=== PATIENT | male | born 1955 | race Caucasian/White ===

== ENCOUNTER 2018-11-26 12:21 | Outpatient (CLI) | payer OTHER, BC ==
[2018-11-26 14:18] LABS: #Basophils 0.1 thou/uL (0.0-0.2); #Eosinphils 0.7 thou/uL (0.0-0.7); #Lymphocytes 3.1 thou/uL (1.20-3.40); #Neutrophils 4.8 thou/uL (1.40-6.50); %Basophils 0.7 % (0.0-1.0); %Eosinophils 7.7 % (0.0-10.0); %Neutrophils 49.6 % (42.0-75.0); Mean Corpuscular HGB CONC 32.9 g/dL (32.0-36.0); Mean Corpuscular Hemoglobin 31.6 pg (27.0-31.0); Mean Corpuscular Volume 96.1 fL (78.0-98.0); Mean Platelet Volume 7.9 fL (7.4-10.4); Platelet Count 206 thou/uL (130-400); RBC Distribution Width 12.2 % (11.5-14.5); Red Blood Cell (RBC) Count 4.74 mill/uL (4.70-6.10); White Blood Cell (WBC) Count 9.6 thou/uL (4.8-10.8)
[2018-11-26 14:38] LABS: Prothrombin Time 12.8 SEC (12.0-14.7)
[2018-11-26 14:39] LABS: Anion Gap 13 mmol/L (10-20); BUN (Urea Nitrogen) 18 mg/dL (8.4-25.7); Calc. Creatinine Clearance 0 mL/min (70-130); Calcium 9.5 mg/dL (7.8-10.44); Carbon Dioxide 25 mmol/L (23-31); Chloride 103 mmol/L (98-107); Estimated GFR-MDRD 70; Glucose 72 mg/dL (80-115); Potassium 4.5 mmol/L (3.5-5.1); Sodium 136 mmol/L (136-145)
--- NOTE | 2018-11-26 17:01 | EKG ---
Test Reason : Blood Pressure : / mmHG Vent. Rate : 051 BPM Atrial Rate : 051 BPM P-R Int : 186 ms QRS Dur : 092 ms QT Int : 446 ms P-R-T Axes : 048 037 021 degrees QTc Int : 411 ms Sinus bradycardia Otherwise normal ECG No previous ECGs available Confirmed by DR. João AARON ([id number]) on 11/26/2018 5:01:10 PM Referred By: ISATU Confirmed By:DR. João AARON
== END 2018-11-26 12:22 | disposition home or self-care (01) ==
LOC: LABBT 12:21
PROVIDERS: ATTEND Orthopaedic Surgery
DX: Z01.818 Encounter for other preprocedural examination (principal); M16.12 Unilateral primary osteoarthritis, left hip
CPT/HCPCS: 80048; 85025; 85610; 87081; 93005; 93010

== ENCOUNTER 2018-11-26 12:30 | Inpatient (IN) | payer OTHER, BC ==
[2018-11-26 12:43] VITALS: BMI 26.4
[2018-12-01] MEDS ORDERED: ceFAZolin Sodium (SDC) 2 GM/100 ML BAG ONE (08:21)
[2018-12-01] MEDS ORDERED: Sodium Chloride 0.9% 100 ML ONE (08:21)
[2018-12-01] MEDS ORDERED: Tranexamic Acid 1,000 MG/10 ML VIAL ONE (08:21)
[2018-12-01] MEDS ORDERED: Vancomycin HCl 1.5 GM in Sodium Chloride 0.9% 250 ML 300 ML IVPB SCH (08:30)
[2018-12-01] MEDS ORDERED: Midazolam HCl 2 mg/2 ml Vial ONE (10:13)
[2018-12-01] MEDS ORDERED: Fentanyl 100 MCG/2 ML VIAL ONE (10:13)
[2018-12-01] MEDS ORDERED: Acetaminophen 500 MG TAB PO PRN (10:41)
[2018-12-01] MEDS ORDERED: HYDROcodone/Acetaminophen 5/325 mg Tablet PO PRN (10:45)
[2018-12-01] MEDS ORDERED: Zolpidem Tartrate 5 MG TAB PO PRN ×2 (10:45→10:58)
[2018-12-01] MEDS ORDERED: Promethazine HCl 25 MG/ML VIAL IM PRN ×3 (10:45→12:29)
[2018-12-01] MEDS ORDERED: Hydrocerin (Eucerin) Cream 120 gm Jar TOP PRN (10:45)
[2018-12-01] MEDS ORDERED: Naloxone HCl 0.4 mg/ml Vial IV PRN (10:45)
[2018-12-01] MEDS ORDERED: Promethazine HCl 25 MG SUPP PR PRN (10:45)
[2018-12-01] MEDS ORDERED: traMADol HCl 50 MG TAB PO PRN ×2 (10:45)
[2018-12-01] MEDS ORDERED: Ketorolac Tromethamine 30 MG/ML VIAL IVP PRN (10:45)
[2018-12-01] MEDS ORDERED: Ondansetron PF 4 MG/2 ML Vial IVP PRN ×2 (10:45→10:58)
[2018-12-01] MEDS ORDERED: Naloxone HCl 0.4 mg/ml Vial IVP PRN (10:45)
[2018-12-01] MEDS ORDERED: diphenhydrAMINE 50 MG/ML VIAL IVP PRN (10:45)
[2018-12-01] MEDS ORDERED: diphenhydrAMINE 50 MG/ML VIAL IM PRN (10:45)
[2018-12-01] MEDS ORDERED: Bupivacaine 0.25% 10 ML VIAL EPIDURAL PRN (10:45)
[2018-12-01] MEDS ORDERED: HYDROcodone/Acetaminophen 10/325 mg Tablet PO PRN ×2 (10:58)
[2018-12-01] MEDS ORDERED: Acetaminophen 325 MG TAB PO PRN (10:58)
[2018-12-01] MEDS ORDERED: Morphine 4 MG/ML VIAL SLOW IVP PRN (10:58)
[2018-12-01] MEDS ORDERED: Fentanyl 100 MCG/2 ML VIAL SLOW IVP PRN ×2 (10:58)
[2018-12-01] MEDS ORDERED: diphenhydrAMINE 25 MG CAP PO PRN (10:58)
[2018-12-01] MEDS ORDERED: Morphine 2 MG/ML SYRINGE SLOW IVP PRN (10:58)
[2018-12-01] MEDS ORDERED: Bupivacaine HCl 0.5%/Epinephrine 1:200,000/PF 30 ml Vial ONE (11:36)
[2018-12-01] MEDS ORDERED: Promethazine HCl 25 MG/ML VIAL SLOW IVP PRN (12:29)
[2018-12-01] MEDS ORDERED: Ondansetron HCl/PF 4 MG/2 ML Vial IVP PRN (12:29)
[2018-12-01] MEDS ORDERED: Acetaminophen 1,000 MG in Premix Bag 1 BAG IVPB SCH (13:45)
[2018-12-01] MEDS ORDERED: Ketorolac Tromethamine 30 MG/ML VIAL IM SCH (14:00)
--- NOTE | 2018-12-01 14:10 | RAD ---
RADIOGRAPH LEFT HIP 2 VIEWS: 12/01/18 HISTORY: 63-year-old male with chronic left hip pain. FINDINGS: Metallic acetabular cup articulates with metallic femoral head prosthesis with stem that reaches the proximal femoral diaphysis. Subcutaneous emphysema indicates recent postoperative status. IMPRESSION: Recently status post total left hip replacement arthroplasty. POS: CET
--- NOTE | 2018-12-01 15:58 | OP ---
DATE OF PROCEDURE: 12/01/2018 PREOPERATIVE DIAGNOSIS: Degenerative joint disease, left hip. POSTOPERATIVE DIAGNOSIS: Degenerative joint disease, left hip. PROCEDURE PERFORMED: Left total hip arthroplasty using [place] Accolade II, #5 stem with a standard 36 mm ceramic head, 56 mm Tritanium cup with a 36 mm X3 liner. MACHINE TRY OUT SETTER: Oliver Amezcua PA-C ESTIMATED BLOOD LOSS: 300. SPECIMENS: None. DRAINS: None. COMPLICATIONS: None. PROCEDURE IN DETAIL: After informed consent was obtained in the preoperative holding area, the patient was taken to the operative suite where general anesthesia was induced. The patient was then positioned in the lateral decubitus position. The hip was then prepped and draped in usual sterile fashion. The patient received preoperative antibiotics. Prior to incision, time-out was called and all members of the surgical team agreed upon site, surgeon, and patient. After this, a longitudinal incision was made directly over the trochanter, noted by palpation extending 2 fingerbreadths above and below the trochanter. The deeper subcutaneous layer was undermined with Bovie electrocautery. The iliotibial band was encountered and incised sharply and the plane below this was developed bluntly. A Charnley retractor was placed to hold this opened. The lateral aspect of the trochanter and the abductor muscles were encountered and then reflected anteriorly off the trochanter using Bovie electrocautery. Once this was completed, the anterior capsule was then encountered and identified and copious capsulotomy was carried out, exposing the femoral neck and head. Dislocation maneuver was then performed and an in situ provisional neck cut was then made using the oscillating saw. Attention was then turned to acetabular preparation and sequential reaming was carried out up to the appropriate diameter. A trial was then malleted into place with good firm resistance and no pullout. The permanent acetabular shell was then malleted squarely into place, as was the appropriate liner. Once completed, the wound was copiously irrigated and attention was then turned to femoral preparation. Flexion and external rotation were performed of the exposed thigh and femoral elevators were then placed at the proximal aspect of the wound. Canal finder was used to establish the length of the canal and sequential reaming was carried out, followed by broaching. Once the appropriate stability was established with the trial broaches with flexion, extension and rotational stability, we did trial with neutral and 2 mm offset incremental necks. Once the appropriate size was decided upon, with good stability noted with flexion, extension, internal and external rotation and shuck being negative, we removed the femoral trial broach and malletted into place the permanent prosthesis with good firm fit, which was also stable to rotation. Again, the hip felt very stable to flexion, extension, internal and external rotation. Leg lengths appeared near anatomic clinically and we were quite happy with prosthesis placement. Copious irrigation was then carried out through the entirety of the wound. Primary closure of the abductors was accomplished with interrupted #2 Vicryl [id number] stitches and the IT band was then closed with interrupted #2 Vicryl, oversewn with a #2 running barbed Quill stitch. Subcutaneous fascia was closed with running barbed Quill stitch and a subcuticular Monocryl barbed Quill stitch was used for skin closure and augmented with skin cement. A sterile dressing was applied. The procedure was terminated without any complication. All counts were correct. The patient was awakened in the operative suite and taken to the recovery room in stable condition. Job ID: [id number]
[2018-12-01] MEDS ORDERED: CEFAZOLIN 2 GM in Sodium Chloride 0.9% 100 ML IVPB SCH (17:00)
[2018-12-01] MEDS: CEFAZOLIN 2 GM in Sodium Chloride 0.9% 100 ML IVPB SCH (20:24)
[2018-12-01] MEDS: Atorvastatin Calcium 20 MG TAB PO SCH (20:25)
[2018-12-01] MEDS: Aspirin 81 mg Enteric Coated Tablet PO SCH (20:25)
[2018-12-01] MEDS: diphenhydrAMINE 25 MG CAP PO PRN ×2 (20:26→23:49)
--- NOTE | 2018-12-01 23:10 | PDOC.HOSPP ---
- Subjective Subjective: Patient seen and examined for med mngt. No CP/SOB. Pain controlled. No new complaints. No overnight events - Objective Vital Signs & Weight: Vital Signs (12 hours) Temp Pulse Resp BP BP Pulse Ox 12/01/18 20:08 97.8 F 54 L 18 109/67 98 12/01/18 15:33 110/68 12/01/18 15:25 97.6 F 47 L 18 114/67 97 Weight Weight 190 lb I&O: 11/30/18 12/01/18 12/02/18 06:59 06:59 06:59 Intake Total 475 Output Total 150 Balance 325 Additional Labs: Laboratory Tests 11/26/18 11/26/18 13:10 13:10 Hgb 15.0 Potassium 4.5 BUN 18 Creatinine 1.06 EKG Reviewed by me: Yes (Sinus bradycardia) ROS - Review of Systems All systems: All other ROS were reviewed and found negative. - Medication Medications: Active Medications Generic Name Dose Route Start Last Admin Trade Name Freq PRN Reason Stop Dose Admin Aspirin 81 mg 12/01/18 21:00 12/01/18 20:25 Ecotrin PO 81 mg BID GUILLERMINA Administration Atorvastatin Calcium 20 mg 12/01/18 21:00 12/01/18 20:25 Lipitor PO 20 mg HS GUILLERMINA Administration Diphenhydramine HCl 25 mg 12/01/18 10:45 12/01/18 20:26 Benadryl PO 25 mg Q3H PRN Administration Itching Diphenhydramine HCl 25 mg 12/01/18 10:45 12/01/18 16:27 Benadryl IVP 25 mg Q3H PRN Administration Itching Cefazolin Sodium 2 gm/ Sodium 100 mls @ 200 mls/hr 12/01/18 20:00 12/01/18 20 :24 Chloride IVPB 12/02/18 04:29 100 mls 0400,1200,2000 GUILLERMINA Administration - Exam NAD Neck: supple, no JVD Heart: RRR, no rubs Respiratory: CTAB, no rales Gastrointestinal: soft, non-tender, normal bowel sounds Extremities: no edema Neurological: no focal deficits Psychiatric: normal affect, A&O x 3 Hosp A/P (1) HLD (hyperlipidemia) Code(s): E78.5 - HYPERLIPIDEMIA, UNSPECIFIED Status: Acute (2) CKD (chronic kidney disease) stage 2, GFR 60-89 ml/min Code(s): N18.2 - CHRONIC KIDNEY DISEASE, STAGE 2 (MILD) Status: Chronic - Plan PT/OT, incentive spirometry Cont Statin at home dose. No other medical issues. No Cardiac history Will follow PRN Thank you for this consultation.
[2018-12-02] MEDS: diphenhydrAMINE 25 MG CAP PO PRN ×4 (03:10→21:46)
[2018-12-02] MEDS: CEFAZOLIN 2 GM in Sodium Chloride 0.9% 100 ML IVPB SCH (03:11)
[2018-12-02] MEDS: HYDROcodone/Acetaminophen 5/325 mg Tablet PO PRN ×4 (03:12→21:52)
[2018-12-02 05:49] LABS: Mean Corpuscular HGB CONC 32.1 g/dL (32.0-36.0); Mean Corpuscular Hemoglobin 31.2 pg (27.0-31.0); Mean Corpuscular Volume 97.2 fL (78.0-98.0); Mean Platelet Volume 7.4 fL (7.4-10.4); Platelet Count 167 thou/uL (130-400); RBC Distribution Width 12.4 % (11.5-14.5); Red Blood Cell (RBC) Count 3.86 mill/uL (4.70-6.10); White Blood Cell (WBC) Count 11.4 thou/uL (4.8-10.8)
[2018-12-02] MEDS: fentaNYL Citrate/PF 500 MCG, Bupivacaine 10 ML in Sodium Chloride 0.9% 80 ML EPIDURAL SCH ×2 (05:50→21:54)
[2018-12-02] MEDS ORDERED: Ferrous Gluconate 324 MG TAB PO SCH (08:00)
[2018-12-02] MEDS: Multivitamin W/ Minerals 1 TAB PO SCH (08:24)
[2018-12-02] MEDS: Aspirin 81 mg Enteric Coated Tablet PO SCH ×2 (08:24→21:36)
[2018-12-02] MEDS: Senokot S 8.6-50 MG TAB PO SCH ×2 (08:24→21:36)
--- NOTE | 2018-12-02 14:48 | PDOC.HOSPP ---
- Subjective Subjective: Pt seen for followup re: dyslipidemia. Feels well, no complaints. - Objective Vital Signs & Weight: Vital Signs (12 hours) Temp Pulse Resp BP BP Pulse Ox 12/02/18 12:00 98 F 77 18 121/64 98 12/02/18 09:50 105/55 L 12/02/18 08:24 94 L 12/02/18 08:00 97.6 F 76 18 102/56 L 94 L 12/02/18 06:14 97 12/02/18 03:26 98.5 F 61 18 124/70 97 Weight Admit Weight 190 lb Weight 190 lb I&O: 12/01/18 12/02/18 12/03/18 06:59 06:59 06:59 Intake Total 1607 Output Total 850 Balance 757 Result Diagrams: 12/02/18 05:36 Additional Labs: Labs and MARs reviewed by me ROS - Review of Systems All systems: All other ROS were reviewed and found negative. Constitutional: denies: fever, chills, sweats, weakness, malaise Cardiovascular: denies: chest pain, palpitations, orthopnea, paroxysmal noc. dyspnea, edema, light headedness - Medication Medications: Active Medications Generic Name Dose Route Start Last Admin Trade Name Freq PRN Reason Stop Dose Admin Hydrocodone Bitart/Acetaminophen 2 tab 12/01/18 10:45 12/02/18 14:41 Viola 5/325 PO 2 tab Q4H PRN Administration For Moderate Pain 4-6 Aspirin 81 mg 12/01/18 21:00 12/02/18 08:24 Ecotrin PO 81 mg BID GUILLERMINA Administration Atorvastatin Calcium 20 mg 12/01/18 21:00 12/01/18 20:25 Lipitor PO 20 mg HS GUILLERMINA Administration Diphenhydramine HCl 25 mg 12/01/18 10:45 12/02/18 14:41 Benadryl PO 25 mg Q3H PRN Administration Itching Diphenhydramine HCl 25 mg 12/01/18 10:45 12/01/18 16:27 Benadryl IVP 25 mg Q3H PRN Administration Itching Fentanyl Citrate 500 mcg/ 100 mls @ 6 mls/hr 12/01/18 10:45 12/02/18 05:50 Bupivacaine HCl 10 ml/ Sodium EPIDURAL 100 mls Chloride INF GUILLERMINA Administration Iron/Minerals/Multivitamins 1 tab 12/02/18 09:00 12/02/18 08:24 Theragran M PO 1 tab DAILY GUILLERMINA Administration Senna/Docusate Sodium 2 tab 12/02/18 09:00 12/02/18 08:24 Senokot S PO 2 tab BID GUILLERMINA Administration - Exam NAD Neck: supple Heart: RRR Respiratory: CTAB Gastrointestinal: soft Neurological: CN's grossly intact Psychiatric: normal affect Hosp A/P (1) HLD (hyperlipidemia) Code(s): E78.5 - HYPERLIPIDEMIA, UNSPECIFIED Status: Chronic (2) Arthritis Code(s): M19.90 - UNSPECIFIED OSTEOARTHRITIS, UNSPECIFIED SITE Status: Chronic - Plan dyslipidemia stable, continue statin. s/p left hip surgery. DVT prophylaxis and pain management per orthopedic surgery service.
[2018-12-02] MEDS: Atorvastatin Calcium 20 MG TAB PO SCH (21:36)
[2018-12-03 04:28] LABS: Hemoglobin 11.2 g/dL (14.0-18.0); Mean Corpuscular HGB CONC 34.6 g/dL (32.0-36.0); Mean Corpuscular Hemoglobin 33.1 pg (27.0-31.0); Mean Corpuscular Volume 95.7 fL (78.0-98.0); Mean Platelet Volume 7.8 fL (7.4-10.4); Platelet Count 149 thou/uL (130-400); RBC Distribution Width 12.2 % (11.5-14.5); Red Blood Cell (RBC) Count 3.38 mill/uL (4.70-6.10)
[2018-12-03] MEDS: Aspirin 81 mg Enteric Coated Tablet PO SCH ×2 (08:34→20:59)
[2018-12-03] MEDS: Multivitamin W/ Minerals 1 TAB PO SCH (08:34)
[2018-12-03] MEDS: Senokot S 8.6-50 MG TAB PO SCH ×2 (08:34→20:59)
[2018-12-03] MEDS ORDERED: HYDROcodone/Acetaminophen 5/325 mg Tablet PO PRN (10:42)
[2018-12-03] MEDS: HYDROcodone/Acetaminophen 5/325 mg Tablet PO PRN ×2 (10:59→16:14)
[2018-12-03 12:35] LABS: #Eosinphils 0.3 thou/uL (0.0-0.7); #Lymphocytes 2.2 thou/uL (1.20-3.40); #Monocytes 1.7 thou/uL (0.11-0.59); #Neutrophils 12.3 thou/uL (1.40-6.50); %Basophils 0.1 % (0.0-1.0); %Eosinophils 1.8 % (0.0-10.0); %Lymphocytes 13.1 % (21.0-51.0); %Monocytes 10.3 % (0.0-10.0); %Neutrophils 74.6 % (42.0-75.0); Mean Corpuscular HGB CONC 33.3 g/dL (32.0-36.0); Mean Corpuscular Hemoglobin 31.9 pg (27.0-31.0); Mean Corpuscular Volume 95.8 fL (78.0-98.0); Mean Platelet Volume 7.9 fL (7.4-10.4); Platelet Count 153 thou/uL (130-400); RBC Distribution Width 12.3 % (11.5-14.5); Red Blood Cell (RBC) Count 3.75 mill/uL (4.70-6.10); White Blood Cell (WBC) Count 16.5 thou/uL (4.8-10.8)
[2018-12-03 12:50] LABS: Bilirubin Negative (Negative); Blood, Urine 3+ (Negative); Calcium Oxalate Crystals 1+ HPF (None Seen); Clarity Clear (Clear); Glucose, Urine (Dipstick) Normal (Negative); Leukocyte 25 Leu/uL (Negative); Nitrite Negative (Negative); Protein, Urine (Dipstick) 20 mg/dL (Neg-Trace); Squamous Epithelial None Seen HPF (0-3); Urobilinogen Normal mg/dL (Less than 2)
[2018-12-03 12:55] LABS: Bacteria/HPF Rare-Few HPF (None Seen)
--- NOTE | 2018-12-03 13:47 | RAD ---
EXAM: Single view of the chest HISTORY: Fever COMPARISON: None FINDINGS: Single view of the chest shows a normal sized cardiomediastinal silhouette. There is no johann dence of consolidation, mass, or pleural effusion. Degenerative changes are seen in the spine and shoulders. IMPRESSION: No evidence of acute cardiopulmonary disease
--- NOTE | 2018-12-03 18:11 | PDOC.HOSPP ---
- Subjective Subjective: had fever earlier, no cough, chest pain or sob is amb in room, at bedside does good i.spirometry left leg pain post op No diarrhea, abd pain or freq/urgency of urination - Objective Vital Signs & Weight: Vital Signs (12 hours) Temp Pulse Resp BP Pulse Ox 12/03/18 15:13 99.6 F 92 16 139/71 93 L 12/03/18 11:55 101.2 F H 88 18 135/83 92 L 12/03/18 07:50 93 L Weight Admit Weight 190 lb Weight 190 lb I&O: 12/02/18 12/03/18 12/04/18 06:59 06:59 06:59 Intake Total 1607 1400 Output Total 850 1750 Balance 757 -350 Result Diagrams: 12/03/18 12:17 ROS - Review of Systems All systems: All other ROS were reviewed and found negative. - Medication Medications: Active Medications Generic Name Dose Route Start Last Admin Trade Name Freq PRN Reason Stop Dose Admin Hydrocodone Bitart/Acetaminophen 2 tab 12/03/18 10:43 12/03/18 16:14 Pierce 5/325 PO 2 tab Q4H PRN Administration PAIN (5-8) Aspirin 81 mg 12/01/18 21:00 12/03/18 08:34 Ecotrin PO 81 mg BID GUILLERMINA Administration Atorvastatin Calcium 20 mg 12/01/18 21:00 12/02/18 21:36 Lipitor PO 20 mg HS GUILLERMINA Administration Diphenhydramine HCl 25 mg 12/01/18 10:45 12/02/18 21:46 Benadryl PO 25 mg Q3H PRN Administration Itching Diphenhydramine HCl 25 mg 12/01/18 10:45 12/01/18 16:27 Benadryl IVP 25 mg Q3H PRN Administration Itching Iron/Minerals/Multivitamins 1 tab 12/02/18 09:00 12/03/18 08:34 Theragran M PO 1 tab DAILY GUILLERMINA Administration Senna/Docusate Sodium 2 tab 12/02/18 09:00 12/03/18 08:34 Senokot S PO 2 tab BID GUILLERMINA Administration - Exam NAD, awake alert Eye: PERRL, anicteric sclera ENT: no oropharyngeal lesions, moist mucosa Neck: supple, no JVD Heart: RRR, no murmur Respiratory: no wheezes, no rales Gastrointestinal: soft, non-tender, normal bowel sounds Extremities: no cyanosis, 1+ LE edema (left hip) Neurological: CN's grossly intact, no focal deficits Musculoskeletal: normal tone, normal strength Psychiatric: normal affect, A&O x 3 Hosp A/P (1) HTN (hypertension) Code(s): I10 - ESSENTIAL (PRIMARY) HYPERTENSION Status: Chronic Qualifiers: Hypertension type: essential hypertension Qualified Code(s): I10 - Essential (primary) hypertension (2) s/p left hip arthroplasty Status: Acute (3) HLD (hyperlipidemia) Code(s): E78.5 - HYPERLIPIDEMIA, UNSPECIFIED Status: Chronic Qualifiers: Hyperlipidemia type: unspecified Qualified Code(s): E78.5 - Hyperlipidemia , unspecified - Plan cxr no infiltrate, will obtain crandall cultures just in case if his fever persists was 101 has come down to 99, likely due to exertion/exercise. ua shows ca crystals, will need outpt ct stone protocol to r/o urolithiasis no abd pain here has post op changes in left hip, its too early to get dvt, not sure if he was mobile before hosp, will get usg venous doppler continue lipitor, asp bid, utlram, toradol prn metabolic panel now, will f/u
[2018-12-03 18:46] LABS: ALT (SGPT) 19 U/L (8-55); AST (SGOT) 27 U/L (5-34); Albumin 3.3 g/dL (3.4-4.8); Alkaline Phosphatase 50 U/L (40-150); Anion Gap 12 mmol/L (10-20); BUN (Urea Nitrogen) 16 mg/dL (8.4-25.7); Bilirubin, Total 0.8 mg/dL (0.2-1.2); Calc. Creatinine Clearance 92 mL/min (70-130); Calcium 8.7 mg/dL (7.8-10.44); Carbon Dioxide 23 mmol/L (23-31); Chloride 102 mmol/L (98-107); Estimated GFR-MDRD 76; Globulin 2.7 g/dL (2.4-3.5); Glucose 134 mg/dL (80-115); Potassium 3.6 mmol/L (3.5-5.1); Sodium 133 mmol/L (136-145)
[2018-12-03] MEDS: Atorvastatin Calcium 20 MG TAB PO SCH (20:59)
[2018-12-04] MEDS: HYDROcodone/Acetaminophen 5/325 mg Tablet PO PRN ×2 (01:37→13:59)
[2018-12-04] MEDS: diphenhydrAMINE 25 MG CAP PO PRN (01:39)
[2018-12-04 06:01] LABS: Hemoglobin 11.4 g/dL (14.0-18.0); Mean Corpuscular HGB CONC 34.4 g/dL (32.0-36.0); Mean Corpuscular Hemoglobin 32.8 pg (27.0-31.0); Mean Corpuscular Volume 95.4 fL (78.0-98.0); Mean Platelet Volume 7.6 fL (7.4-10.4); Platelet Count 151 thou/uL (130-400); RBC Distribution Width 12.1 % (11.5-14.5); Red Blood Cell (RBC) Count 3.47 mill/uL (4.70-6.10); White Blood Cell (WBC) Count 14.6 thou/uL (4.8-10.8)
[2018-12-04 06:20] LABS: Anion Gap 10 mmol/L (10-20); BUN (Urea Nitrogen) 15 mg/dL (8.4-25.7); Calc. Creatinine Clearance 88 mL/min (70-130); Calcium 8.8 mg/dL (7.8-10.44); Carbon Dioxide 27 mmol/L (23-31); Chloride 102 mmol/L (98-107); Estimated GFR-MDRD 73; Glucose 88 mg/dL (80-115); Potassium 3.6 mmol/L (3.5-5.1); Sodium 135 mmol/L (136-145)
[2018-12-04] MEDS: Aspirin 81 mg Enteric Coated Tablet PO SCH (09:05)
[2018-12-04] MEDS: Multivitamin W/ Minerals 1 TAB PO SCH (09:05)
[2018-12-04] MEDS: Senokot S 8.6-50 MG TAB PO SCH (09:05)
--- NOTE | 2018-12-04 09:45 | ULT ---
EXAM: Bilateral lower extremity venous Doppler US HISTORY: Recent left hip replacement surgery on 12/01/2018. Left lower extremity pain and edema FINDINGS: Grayscale, color-flow, Doppler evaluation, spectral analysis of the bilateral lower extremities venou s structures is performed with 2-D imaging. The bilateral common femoral, superficial femoral, popliteal, posterior tibial, proximal greater saphenous and profunda femoral veins are imaged. There is normal luminal compressibility, flow, and augmentation in the visualized deep venous structu res of the bilateral lower extremities. IMPRESSION: No evidence of a deep vein thrombosis in either lower extremity.
[2018-12-04 11:40] VITALS: BP 128/75; TEMP 97.9
[2018-12-04] MEDS ORDERED: Ibuprofen 200 MG TAB PO PRN (17:00)
--- NOTE | 2018-12-04 20:52 | DIS ---
DATE OF ADMISSION: 12/01/2018 DATE OF DISCHARGE: 12/04/2018 DISCHARGE DISPOSITION: Home. PRIMARY DISCHARGE DIAGNOSIS: The patient is status post left hip arthroplasty. SECONDARY DISCHARGE DIAGNOSES: Hypertension dyslipidemia. PROCEDURES DONE DURING HOSPITALIZATION: The patient had a left total hip arthroplasty done by Dr. Brooks on 12/01/2018. Ultrasound venous Doppler of lower extremities done showed no evidence of DVT. Chest x-ray done showed no acute cardiopulmonary abnormalities. Had a white count of 14, hemoglobin and hematocrit 11 and 33, platelet count 151. BUN 15 and creatinine 1.0. Urinalysis showed 3+ blood with 11 to 20 rbc's, 4 to 6 wbc's, and 1+ calcium oxalate crystals. DISCHARGE MEDICATIONS: 1. Aspirin 81 mg twice daily. 2. Atorvastatin 20 mg p.o. at bedtime. 3. Motrin p.r.n. for pain. DISCHARGE PLAN: The patient to follow up with Dr. Brooks as advised and primary care physician in 1 week. He has been advised to have an outpatient referral for Urology in view of likely urolithiasis based on urine analysis that was noticed here. BRIEF COURSE DURING HOSPITALIZATION: The patient was electively admitted by Dr. Brooks on the for left total hip arthroplasty. The patient has had this done on the . Postop, [facility] were consulted for comanagement of medical issues. His postop stay was unremarkable except for an episode of fever of 101.2 on the . This resolved completely prior to discharge. He has had complete workup toward the same with a chest x-ray, urinalysis, and ultrasound venous Doppler, none of which revealed any abnormality except for calcium phosphate crystals on the UA with rbc's. He has been advised to follow up with his primary care physician in [place] in a week and have outpatient referral for Urology for further workup for possible urolithiasis. The patient mentions that he has had prior history of ureteric colic 4 years back and has not had any referral to a urologist from then. He is otherwise hemodynamically stable and has been cleared by Orthopedic Surgery for discharge. Please note, I have seen and examined the patient on the day of discharge. Job ID: [id number]
== END 2018-12-04 14:36 | disposition home or self-care (01) | DRG 470 ==
LOC: SJJU 12-01 07:56
PROVIDERS: ADMIT Orthopaedic Surgery; ATTEND Orthopaedic Surgery
PROC: 0SRB03Z Replacement of Left Hip Joint with Ceramic Synthetic Substitute, Open Approach (ICD-10-PCS; principal; 2018-12-01)
DX: M16.12 Unilateral primary osteoarthritis, left hip (principal); E78.5 Hyperlipidemia, unspecified; N18.2 Chronic kidney disease, stage 2 (mild); I12.9 Hypertensive chronic kidney disease with stage 1 through stage 4 chronic kidney disease, or unspecified chronic kidney disease; N20.9 Urinary calculus, unspecified
CPT/HCPCS: 36415; 71045; 80048; 80053; 81001; 85027; 87040; 87086; 93970; J0131; J0670; J0690; J1200; J2250; J3010; J3370; J3490; J7050; Q0163